=== PATIENT | male | born 1975 | race Caucasian/White ===

== ENCOUNTER 2021-05-31 07:28 | Outpatient (REF) | payer BC, SELFPAY ==
[2021-05-31 11:43] LABS: Cholesterol 187 mg/dL; HDL Cholesterol 69 mg/dL; LDL Cholesterol Calculated 103 mg/dl; Triglycerides 78 mg/dL
== END 2021-05-31 07:29 | disposition home or self-care (01) ==
LOC: HO.HMGCLDS 07:28
PROVIDERS: PCP Internal Medicine; Visit Provider Internal Medicine
DX: E78.00 Pure hypercholesterolemia, unspecified (principal)
CPT/HCPCS: 36415; 80061

== ENCOUNTER 2022-07-11 13:07 | Outpatient (REF) | payer BC, SELFPAY ==
--- NOTE | ~2022-07-11 | CT_ITS ---
EXAMINATION: CT FOOT WITHOUT CONTRAST, RIGHT CLINICAL INFORMATION: Residual foreign body in soft tissues. COMPARISON: None TECHNIQUE: CT scan of the right foot was performed reconstruction imaging performed at the acquisition workstation. This CT examination was performed using dose optimization techniques as appropriate, variously including the following: *Automated exposure control *Adjustment of mA and/or kV according to patient size (this includes techniques or standardized protocols for targeted exams where dose is matched to indication/reason for exam; i.e. extremities or head) *Use of iterative reconstruction technique DLP: 218 mGy-cm FINDINGS: There is no radiopaque foreign body. Subcutaneous soft tissues: There is a localized increased density in the plantar subcutaneous soft tissues overlying the 5th metatarsophalangeal joint with similar but less prominent similar findings overlying the plantar aspect of the 1st and 4th metatarsophalangeal joint. Muscles/tendons: Normal. Bone and joints: Normal. CT/CT foot RT wo IV con IMPRESSION: No radiopaque foreign body. Soft tissue changes over the plantar aspect of the 1st, 4th and 5th metatarsophalangeal joints with the appearance most suggestive of adventitial bursitis.
== END 2022-07-11 13:08 | disposition home or self-care (01) ==
LOC: HO.CT 13:07
PROVIDERS: Visit Provider Surgery
DX: M79.5 Residual foreign body in soft tissue (principal); M79.671 Pain in right foot
CPT/HCPCS: 73700

== ENCOUNTER 2022-10-16 08:35 | Outpatient (REF) | payer BC, SELFPAY ==
[2022-10-16 11:29] LABS: MANUAL DIFF FLAG NO
[2022-10-16 11:39] LABS: Basophils Absolute Auto 0.1 X10*3/uL (0.0-0.2); Basophils Percent Auto 0.8 % (0-2); Eosinophils Absolute Auto 0.2 X10*3/uL (0.0-0.4); Eosinophils Percent Auto 2.9 % (0-4); Hematocrit 42.6 % (42.0-52.0); Imm Gran Abs Auto 0.02 X10*3/uL (0.00-0.03); Imm Gran Pct Auto 0.3 % (0.0-0.4); Lymphocytes Absolute Auto 1.9 X10*3/uL (1.2-4.9); Lymphocytes Percent Auto 25.3 % (20-40); Mean Corpuscular HGB Conc 32.9 g/dl (31.0-36.0); Mean Corpuscular Hemoglobin 28.7 pg (27.0-33.0); Mean Corpuscular Volume 87.3 fL (80.0-98.0); Mean Platelet Volume 10.5 fL (9.4-12.4); Monocytes Absolute Auto 0.8 X10*3/uL (0.1-1.2); Monocytes Percent Auto 10.5 % (2-11); Neutrophils Absolute Auto 4.4 x10*3/uL (2.0-8.3); Neutrophils Percent Auto 60.2 % (45-73); Platelet Count 273 X10*3/uL (160-400); Red Blood Count 4.88 X10*6/uL (4.60-5.80); Red Cell Distribution Width 13.4 % (11.0-16.0); White Blood Count 7.3 X10*3/uL (4.8-10.8)
[2022-10-16 13:24] LABS: Alanine Aminotransferase 15 U/L (0-40); Albumin Level 4.4 g/dL (3.5-5.0); Alkaline Phosphatase 46 U/L (39-117); Anion Gap 11 (12-20); Aspartate Amino Transferase 16 U/L (5-37); Bilirubin Total 0.7 mg/dL (0.0-1.0); Blood Urea Nitrogen 17 mg/dL (9-16); Calcium 9.4 mg/dL (8.4-10.2); Carbon Dioxide 30 mmol/L (22-29); Chloride 104 mmol/L (96-108); Cholesterol 216 mg/dL; Estimated Glomerular Filt Rate > 60; Glucose Fasting 88 mg/dL (60-99); HDL Cholesterol 69 mg/dL; LDL Cholesterol Calculated 134 mg/dl; Potassium 4.3 mmol/L (3.3-5.1); Sodium 141 mmol/L (135-145); Thyroid Stimulating Hormone 1.38 uIU/mL (0.32-4.0); Total Protein 6.6 g/dL (6.5-8.0); Triglycerides 66 mg/dL
== END 2022-10-16 08:36 | disposition home or self-care (01) ==
LOC: HO.HMGCLDS 08:35
PROVIDERS: PCP Internal Medicine; Visit Provider Internal Medicine
DX: Z00.00 Encounter for general adult medical examination without abnormal findings (principal)
CPT/HCPCS: 36415; 80053; 80061; 82306; 84443; 85025

== ENCOUNTER 2024-06-01 08:59 | Outpatient (REF) | payer BC, SELFPAY ==
[2024-06-01 10:07] LABS: MANUAL DIFF FLAG NO
[2024-06-01 10:16] LABS: Basophils Absolute Auto 0.1 X10*3/uL (0.0-0.2); Eosinophils Absolute Auto 0.4 X10*3/uL (0.0-0.4); Eosinophils Percent Auto 5.3 % (0-4); Hematocrit 41.2 % (42.0-52.0); Hemoglobin 14.1 g/dl (14.0-18.0); Imm Gran Abs Auto 0.03 X10*3/uL (0.00-0.03); Imm Gran Pct Auto 0.4 % (0.0-0.4); Lymphocytes Percent Auto 29.2 % (20-40); Mean Corpuscular HGB Conc 34.2 g/dl (31.0-36.0); Mean Corpuscular Hemoglobin 29.7 pg (27.0-33.0); Mean Corpuscular Volume 86.9 fL (80.0-98.0); Mean Platelet Volume 9.7 fL (9.4-12.4); Monocytes Absolute Auto 0.7 X10*3/uL (0.1-1.2); Monocytes Percent Auto 9.5 % (2-11); Neutrophils Absolute Auto 3.7 x10*3/uL (2.0-8.3); Neutrophils Percent Auto 54.6 % (45-73); Platelet Count 271 X10*3/uL (160-400); Red Blood Count 4.74 X10*6/uL (4.60-5.80); Red Cell Distribution Width 13.4 % (11.0-16.0); White Blood Count 6.8 X10*3/uL (4.8-10.8)
[2024-06-01 10:51] LABS: Alanine Aminotransferase 11 U/L (0-40); Albumin Level 4.2 g/dL (3.5-5.0); Alkaline Phosphatase 40 U/L (39-117); Anion Gap 12 (12-20); Aspartate Amino Transferase 14 U/L (5-37); Bilirubin Total 0.8 mg/dL (0.0-1.0); Blood Urea Nitrogen 17 mg/dL (9-16); Calcium 9.2 mg/dL (8.4-10.2); Carbon Dioxide 29 mmol/L (22-29); Chloride 103 mmol/L (96-108); Cholesterol 217 mg/dL (<200); Estimated Glomerular Filt Rate 58; Glucose Fasting 98 mg/dL (60-99); HDL Cholesterol 75 mg/dL (>40); LDL Cholesterol Calculated 129 mg/dL (<100); Magnesium 2.2 mg/dL (1.6-2.6); Potassium 4.3 mmol/L (3.3-5.1); Sodium 140 mmol/L (135-145); Total Protein 6.5 g/dL (6.5-8.0); Triglycerides 68 mg/dL (<150)
== END 2024-06-01 09:00 | disposition home or self-care (01) ==
LOC: HO.HMGCLDS 08:59
PROVIDERS: PCP Internal Medicine; Visit Provider Internal Medicine
DX: Z00.00 Encounter for general adult medical examination without abnormal findings (principal); E78.00 Pure hypercholesterolemia, unspecified; F90.9 Attention-deficit hyperactivity disorder, unspecified type; L84 Corns and callosities; J34.89 Other specified disorders of nose and nasal sinuses
CPT/HCPCS: 36415; 80053; 80061; 83735; 84443; 85025

== ENCOUNTER 2025-01-05 10:27 | Outpatient (AMB) | payer BC, SELFPAY ==
--- NOTE | 2025-01-05 10:33 | A.OFFPC_ITS ---
Vital Signs 01/05/25 10:38 Height 5 ft 9.5 in Weight 176 lb BMI 25.6 BP 118/72 Blood Pressure Location Rt brachial Pulse 65 Pulse Source Pulse Oximeter Temp 97.2 F Pulse Oximetry (%) 98 Intake Visit Reasons: follow up Allergies No Known Allergies Allergy (Verified 01/05/25 11:38) Medication List - Last Reconciled 01/05/25 by Weston Patel MD bupropion HCl SR (Wellbutrin SR) 150 mg PO BID PFSH Medical History (Updated 01/05/25 @ 11:40 by Weston Patel MD) ADHD (attention deficit hyperactivity disorder) Deviated nasal septum Family History Mother Breast cancer Father Skin cancer Social History Alcohol intake: current Alcohol intake frequency: holidays/special occasions only Patient Tobacco Use Status: Never used Tobacco Physical exam (Primary Care) Vital Signs: Last Vital Signs Temp 97.2 F 01/05/25 10:38 Pulse 65 01/05/25 10:38 BP 118/72 01/05/25 10:38 Pulse Ox 98 01/05/25 10:38 Care Plan Goal for BP management: BP is in range. BMI result Body Mass Index 25.6 Tobacco/Smoking Status: Tobacco use Status Patient Tobacco Use Status Never used Tobacco 01/05/25 10:34 Const General: cooperative and healthy appearing Nutritional Appearance: well nourished Orientation/consciousness: patient oriented x3 Limitations: no limitations HENMT Head: Yes normal to inspection Eyes General: appearance normal, both eyes and all related structures Neck Neck: Yes normal visual inspection Chest Chest palpation & inspection: normal palpation of entire chest wall Resp Effort & Inspection: normal respiratory effort Neuro General: patient oriented x3 Coding Level of Care Code New Pt Level 4 (79591) Complex EM visit Add On G2211 Diagnoses ADHD (attention deficit hyperactivity disorder) F90.9 Deviated nasal septum J34.2 Foreign body (FB) in soft tissue M79.5 Assessment & Plan Assessment & Plan (1) ADHD (attention deficit hyperactivity disorder): Code(s): F90.9 - Attention-deficit hyperactivity disorder, unspecified type Category: Medical Plan: Reviewed the record, Wellbutrin started. Recheck in 4 weeks (2) Deviated nasal septum: Code(s): J34.2 - Deviated nasal septum Category: Medical Plan: Awaiting CT orders from ENT (3) Foreign body (FB) in soft tissue: Code(s): M79.5 - Residual foreign body in soft tissue Category: Medical Plan: As above Plan History of Present Illness The patient is a 49-year-old male presenting with routine physical evaluation and follow-up on referrals for ear, nose, and throat evaluation, and evaluation for attention deficit disorder. The patient reported experiencing difficulty breathing through the left nostril, particularly exacerbated at night when sleeping on his side. This was initially evaluated by Dr. Samano, who referred the patient to an ENT specialist. The ENT specialist conducted a scope examination in November, noting a deviated nasal septum towards the right, which is counterintuitive to the reported symptoms in the left nostril. A CT scan was recommended for further assessment; however, it is pending completion. Concurrent with these respiratory symptoms, the patient is also undergoing evaluation for attention deficit disorder, as referred by Dr. Samano to Dr. Gilman. Previous assessment indicated borderline symptoms not fully meeting the criteria for a clinical diagnosis of ADD. Executive function appeared average, with above-average abilities in other cognitive domains, creating a perceived deficit. The recommendations included medication consideration for symptomatic relief. Regarding personal constraints, his estranged expressed concern about ADD symptoms affecting their relationship quality. Furthermore, the patient reports significant challenges in task management, completion of administrative responsibilities, remembering appointments, and meeting academic obligations efficiently. Additionally, the patient has self-managed a plantar wart under the callus of his foot, which causes discomfort when walking. 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 - Currently from his , with no children. - Engages in daily exercise, including gym activities and maintaining his five- acre property. - Reports no tobacco or alcohol use. Review of Systems - Ear, Nose, Throat: Reports difficulty breathing through the left nostril at night. - Neurological: Reports difficulty with time management, task completion, and remembering appointments. Physical Exam General: Appearance normal, both eyes and all related structures Nutritional Appearance: Well nourished Orientation/consciousness: Patient oriented x3 Limitations: No limitations Head: Normal to inspection Neck: Normal visual inspection Chest: Normal palpation of entire chest wall Respiratory: Difficulty breathing through the left nostril, suspected deviated septum Neurology: Patient oriented x3 Results Plan - Evaluate and follow up on the scheduled CT scan for further investigation of nasal obstruction. - Initiate treatment with bupropion for attention deficit symptoms and low-level depression. - Encourage maintaining a daily log to assess medication effectiveness and anna tor potential side effects. - Follow up with potential recommendations for psychotherapy to support cognitive behavioral interventions. - Continue self-treatment for plantar wart; consider consulting a special investigator if progress remains unsatisfactory. - Schedule a follow-up appointment in four weeks to evaluate medication effectiveness and reassess ENT management. Patient was informed and verbally consented to the use of an ambient scribe for clinic note documentation during this visit. Discussion Notes I discussed with the patient the recommendation to begin bupropion, which can aid with attention and depressive symptoms. Bupropion, a norepinephrine-dopamine reuptake inhibitor, often helps in improving concentration and alleviating gloom associated with depressive symptoms. I informed the patient that any medication could initially cause minor side effects, such as feelings of strangeness, which typically resolve within a couple of days. It is essential to maintain compliance to realize the medication's benefits while observing and logging any side effects, particularly concerning potential weight changes. I educated the patient on the importance of gradual discontinuation if they decide to stop the medication. Additionally, I highlighted that psychotherapy, particularly cognitive behavioral therapy, can be beneficial. Options will be explored for therapist recommendations. Finally, I advised the patient on using practical strategies, such as timers and lists, to manage tasks effectively, recognizing that, given his academic achievements, these can further enhance productivity. Patient Instructions - Start taking bupropion as prescribed, twice daily initially. - Keep a daily log of symptoms to monitor medication effectiveness. - Follow up on CT scan for nasal evaluation if not scheduled; contact ENT office to expedite if necessary. - Continue self-care for plantar wart; consider podiatry consult if needed. - Return for follow-up in four weeks for reassessment and review of progress. - Consider engaging in cognitive behavioral therapy for additional support. - Maintain current level of physical activity and routine household management. Medications: New bupropion HCl SR (Wellbutrin SR) 150 mg PO BID 60 tabs 1RF
[2025-01-05 10:38] VITALS: BP 118/72; PULSE 65; TEMP 36.2; O2SAT 98; BMI 25.6
--- OUTSIDE RECORDS SUMMARY | 2025-01-05 12:22 | XMS_ITS ---
Author Organization Abdifatah Samano DO, [facility] Address [address], [place] [id number] Care Team Providers Care Electrical Engineering Designer Name Role Phone Abdifatah Samano Primary Care Provider [phone] REASON FOR VISIT 3 month f/u Encounters Encounter Location Date Provider Diagnosis Abdifatah Samano DO, [address] [phone] 09/01/2024 Abdifatah Samano PLAN OF TREATMENT No Information
--- OUTSIDE RECORDS SUMMARY | 2025-01-05 12:22 | XMS_ITS | Data Portability ---
Author Organization [place] - [facility], Allergy Address [address] [place] [phone] Care Team Providers Care Brownfield Redevelopment Specialist Name Role Phone HERSONDOTTIE JONES Referring Provider [phone] Assessment No assessment recorded. Plan of Treatment Reminders Order Date Submit Date Provider Last Modified By Organization Details Last Modified Time Details Appointments None recorded. Lab None recorded. Referral plastic surgeon referral 2024 025 [facility] Lew Carter MD [facility], [address] [place] [address], [place], [address], 5 16:25:21 Procedures None recorded. Surgeries None recorded. Imaging CT, maxillofa cial, w/ contrast 2024 025 [facility], [address] [place], [address], 5 15:39:11 Medication Orders Flonase Allergy Relief 50 mcg/actua tion nasal spray,sunday pension 2024 025 [id number], [address] [place], [address], 5 15:36:50 Patient TargetsNo targets recorded. Patient InstructionsNo instructions recorded. Reason for Referral Plastic Surgeon Referral for Disorder of the nose Referring Physician: Dottie Avila, Otolaryngology, Encounter Date: 11/23/2024 Problems Name Problem SNOMED Code Status Onset Date Resolution Date Notes Provider Name and Address Organization Details Recorded Time Disorder of the nose 10864841 Active 025 DOTTIE Carbajal MD [address] [address], [place], [phone], [facility] - [facility] 15:30:06 Deviated nasal septum 532636106 Active 025 DOTTIE Carbajal MD [address] [address], [place], [phone], [facility] - [facility] 15:30:10 Nasal congestion 78635434 Active 025 DOTTIE Carbajal MD [address] [address], [place], [phone], [facility] - [facility] 15:30:13 Problem Notes None recorded. Procedures Surgical History Date Name Laterality Status Provider Name and Address Organization Details Recorded Time 11/23/2024 NasalEndos copy_DP completed DOTTIE AVILA MD [address] [place] [address], [phone], [facility] 11/23/2024 15:30:28 Imaging Results None recorded. Procedure Notes None recorded. Medical Equipment None Reported. Medications Name Sig Start Date Stop Date Status Note LastModified by Organization Details LastModified Time fluticasone propionate 50 mcg/actuatio n nasal spray,suspen haseeb SPRAY 1 SPRAY BY INTRANASAL ROUTE EVERY DAYNC active Not Available Not Available No t Available Vitals Date Recorded Body height Body mass index (BMI) Body weight Provider Name and Address Organization Details Last Updated DateTime 11/23/2024 177.8 cm 38.7 kg/m2 682160.94 g Mihir Frey [place] - [facility] 11/23/2024 14:57:16 Social History None recorded. Functional Status None recorded. Mental Status None recorded. Family History Nothing Reported. Medical History No medical history recorded. Past Encounters Encounter ID Performer Location Encounter Start Date Encounter Closed Date Diagnosis/Indication Diagnosis SNOMED-CT Code Diagnosis ICD10 Code Diagnosis Note [id number] DOTTIE AVILA MD [facility] on [address] [place] [phone] 11/23/2024 14:38:20 11/23/2024 15:37:57 Disorder of the nose 06524481 J34.9 He has nasal obstructio n worse on the left that doesn't seem to be due to septal deviation. I suggested breathe right strips and I will refer to plastic surgery for consultati on for functional rhinoplast y. I will order a CT max/face (with contrast since he feels some asymmetry and change in his left malar area to make sure no underlying lesions) to evaluate the structure of his nose and sinuses. I will refer to to plastic surgery for consultati on. Nasal endo negative for polyps and purulence. Deviated nasal septum 12 6960695 J34.2 Septum deviates to the right, but airflow is worse on the right Nasal congestion 0236406 0 R09.81 see above Health Concerns Section Related Observation LastModified by Organization Detai ls LastModified Time None Recorded Concern Status LastModified by Organization Details LastModified Time None Recorded Advance Directives Directive None Recorded Payers Encounter Date Sequence Insurance Name Policy Number Policy Cobb Covered Member ID Cobb Member ID Guarantor Name 11/23/[address] [facility] [id number] Heebrt Heath [id number] Hebert Heath Notes Date Note Type Note Provider Name and Address Organization Details Recorded Time 11/23/2024 text/html He has noted winnie t when he palpates his left maxillary area near the nasal sidewall there is a bump he doesn't have on the right side. He notes congestion on the inside of his nose as well. He reports when he is exercising he hears a flapping sound when he breathes through his nose. No hx of nasal surgery or trauma. Denies seasonal congestion or rhinorrhea related to allergies. He does not smoke. No hx of sinus infections. This has been worse over the last two years or so. DOTTIE AVILA MD [address] [place] [address], [place], [address], [place] - [facility] 11/23/2024 15:36:52
--- OUTSIDE RECORDS SUMMARY | 2025-01-05 12:23 | XMS_ITS ---
Author Organization Abdifatah Samano DO FACP Address [address] [place] [phone] Care Team Providers Care Irrigation Engineer Name Role Phone Abdifatah Samano Primary Care Provider ALLERGIES Allergen (clinical drug ingredient) Drug/Non Drug Allergy documented on EMR Reaction Allergy Type Onset Date Status amoxicillin Amoxicillin urticaria Drug Allergy Elizabeth ctive RESULTS Component Value Reference Range Notes Magnesium Reviewed date:06/01/2024 11:14:46 AM Interpretation:Normal Performing Lab:[facility], [address] [place] [address] Notes/Report: Magnesium 2.2 1.6-2.6 mg/dL REASON FOR REFERRAL Reason CSE Lesion on dorsum of left hand Lesion of left maxillary region Diagnosis 1 Encounter for genera l adult medical examination without abnormal findings (Z00.00) Referral Organization Abdifatah Ricketts FACP Referring Provider First Name Abdifatah Referring Provider Last Name Jazmyne Referring Provider Speciality Internal M edicine Referred Provider Rex Whiting Referred Provider Specialty Dermatology General Notes Priscilla Harrington 4 03:28:49 PM EDT > Referral faxed prior to scheduling, Priscilla Harrington 05/27/2024 10:49:51 AM EDT > Patient aware that the Dermatology office will contact patient. Referral Priority Routine Reason Adult ADHD assessmen t Diagnosis 1 Adult ADHD (F90.9) Referral Organization Abdifatah Ricketts FACP Referring Provider First Name Abdifatah Referring Provider Last Name Jazmyne Referring Provider Speciality Internal M edicine Referred Provider Farhat Teran Referred Provider Specialty Licensed Psy chologist General Notes Priscilla Harrington 4 03:28:07 PM EDT > Referral faxed prior to scheduling Referral Priority Routine Reason Callus of foot Diagnosis 1 Callus of foot (L84) Referral Organization Abdifatah Ricketts FACP Referring Provider First Name Abdifatah Referring Provider Last Name Jazmyne Referring Provider Speciality Internal edicine Referred Provider Javon Hernandez Referred Provider Specialty Podiatry General Notes Priscilla Harrington 4 03:27:03 PM EDT > Referral faxed prior to scheduling and patient is aware that he has to call and make appointment., Brock Harringtonna 07/07/2024 01:51:02 PM EDT > Called Dr. Dan office patient has not called to make appointment yet and Dr. Hernandez is retiring in August, but when patient calls they will be put with another physician. 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) Referral Organization Abdifatah Ricketts FACP Referring Provider First Name Abdifatah Referring Provider Last Name Jazmyne Referring Provider [facility] Internal edicine Referred Provider Abdifatah Oliva Referred Provider Specialty Otolaryngolo gy General Notes Priscilla Harrington 4 03:29:56 PM EDT > Referral faxed prior to scheduling Referral Priority Routine Referral Appointment Date 11/23/2024 REASON FOR VISIT physical, annual visit MEDICATIONS Medication SIG (Take, Route, Frequency, Duration) Notes Start Date End Date Status Ibuprofen 800 MG 1 tablet with food o r milk as needed Orally Three times a day 10/27/2019 Active Magnesium Glycinate 100 MG 2 capsules Or ally Twice a day Active [place] 3 1000 MG 1 capsule Orally Onc e a day Active SOCIAL HISTORY Tobacco Use: Social History Observation Description Date Details (start date - stop date) Never Smoker NA - NA Sex Assigned At : Social History Observation Description Sex Assigned At Unknown Tobacco Use/Smoking Question Answer Notes Patient is a nonsmoker Additional Findings: Tobacco Non-User Cu rrent non-smoker, currently using no form of tobacco Alcohol Screen Question Answer Notes Did you have a drink containing alcohol in the p ast year? No Points 0 Interpretation Negative PROBLEMS Problem Type ICD Code Onset Dates Problem Status W/U Status Risk SNOMED Code Notes Problem Adult ADHD (F90.9) Active confirmed 977211424 VITAL SIGNS BMI 25.32 kg/m2 05/26/2024 Blood pressure systolic 102 mm Hg 05/26/20 24 Blood pressure diastolic 64 mm Hg 024 Height 69.50 in 05/26/2024 Weight 174 lbs 05/26/2024 Encounters Encounter Location Date Provider Diagnosis Abdifatah Camacho Jazmyne DO, [address] [phone] 05/26/2024 Abdifatah Samano Encounter for genera l adult medical examination without abnormal findings Z00.00 ; Hypercholesterolemia E78.00 ; Adult ADHD F90.9 ; Callus of foot L84 and 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 ASSESSMENTS Encounter Date Diagnosis Assessment Notes Treatment Notes Treatment Clinical Notes 05/26/2024 Encounter for genera l adult medical examination without abnormal findings (ICD-10 - Z00.00) 05/26/2024 Hypercholesterolemia (ICD-10 - E78.00) 05/26/2024 Adult ADHD (ICD-10 - F90.9) 05/26/2024 Callus of foot (ICD- 10 - L84) 05/26/2024 Refractory obstructi on of nasal airway (ICD-10 - J34.89) PLAN OF TREATMENT Medication Medication Name Sig Start Date Stop Date Notes Ibuprofen 800 MG 1 tablet with food o r milk as needed Orally Three times a day 10/27/2019 Magnesium Glycinate 100 MG 2 capsules Orally Twice a day [place] 3 1000 MG 1 capsule Orally Once a day Pending Test Test Name Order Date CBC w DIFF 05/26/2024 LIPOPROTEIN FRACTIONATION (LIPID PANEL) 05/26/2024 PROFILE, FASTING 05/26/2024 TSH (THYROID STIMULATING HORMONE) 2023 Referrals Referral Date Details CSE Lesion on dorsum of left hand Lesion of left maxillary region, Rex Whiting Adult ADHD assessmen Farhat hudson Callus of footKeith 11/23/2024 11/23/2024, Nasal ai rway obstruction, Abdifatah Oliva Next Appt Details Follow Up: 3 Months, Reason: follow up visit,review lab work Progress Notes * Examination Category Sub-Category Detail Notes General Examination GENERAL APPEARANCE: well dev eloped, well nourished, in no acute distress HEAD: normocephalic, atrau matic EYES: pupils equal, round, reactive to light and accommodation, sclera non-icteric NOSE: nares patent NECK/THYROID: neck supple, full ra nge of motion, no cervical lymphadenopathy, thyroid normal, no carotid bruit HEART: regular rate and rhy thm, S1, S2 normal, no murmurs CHEST: normal LUNGS: clear to auscultatio n bilaterally ABDOMEN: soft, nontender, non distended, bowel sounds present, normal NEUROLOGIC: nonfocal, motor stre ngth normal upper and lower extremities, sensory exam intact SKIN: warm and dry, lesion on dorsum of left hand EXTREMITIES: no edema PERIPHERAL PULSES: 2+ dorsalis pedis, 2 + posterior tibial PSYCH: alert, oriented, cog nitive function intact, cooperative with exam, good eye contact, judgement and insight good PODIATRIC: calluses present radha ntar surface, laterally History and Physical Notes * HPI (History of Present Illness) Category Sub-Category Detail Notes Depression Screening PHQ-9 Little inte rest or pleasure in doing things: Not at all Feeling down, depressed, or hopeless: No t at all Trouble falling or staying asleep, or sl eeping too much: Not at all Feeling tired or having little energy: N ot at all Poor appetite or overeating: Not at all Feeling bad about yourself o r that you are a failure, or have let yourself or your family down: Not at all Trouble concentrating on thi ngs, such as reading the newspaper or watching television: Not at all Moving or speaking so slowly that other people could have noticed; or the opposite, being so fidgety or restless that you have been moving around a lot more than usual: Not at all Thoughts that you would be b bessie off or of hurting yourself in some way: Not at all Total Score: 0 Interpretation and Intervention Depression Katelynn jack Findings: Negative Follow-Up for Depression: : Review of PH Q-9 found negative result; no follow-up needed Fall Risk Fall History Have you had two or more fal ls in the past year?: No Have you had any falls with injury in th e past year?: No Fall Risk Assessment:: No falls in the p ast year Communication Needs PCMH Communication Needs - PCM He aring Impairment?: Yes mild Vision Impairment?: No Cognitive Impairment?: No SDOH Questions SDOH Questions In the past year have you been worried about losing your housing?: No In the past year have you or any family members you live with been unable to get any of the following when it was really needed? Check all that apply:: None Consultation Request Notes Referral Date Referring Provider Referred Provider Not es 05/26/2024 Abdifatah Samano Richard CSE Lesion on dorsum of left hand Lesion of left maxillary region 05/26/2024 Abdifatah Samano Mitchell Adult ADHD assessment 05/26/2024 Abdifatah Samano Walter Callus of fo ot 05/26/2024 Abdifatah Samano Robert Nasal airway obstruction
--- OUTSIDE RECORDS SUMMARY | 2025-01-05 12:23 | XMS_ITS | Patient Health Record ---
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 Agent Name Role Phone Abdifatah Samano Primary Care Provider ALLERGIES Allergen (clinical drug ingredient) Drug/Non Drug Allergy documented on EMR Reaction Allergy Type Onset Date Status amoxicillin Amoxicillin urticaria Drug Allergy Deposit ctive RESULTS Component Value Reference Range Notes Magnesium Reviewed date:06/01/2024 11:14:46 AM Interpretation:Normal Performing Lab:[facility], [address] [place] [phone] Notes/Report: Magnesium 2.2 1.6-2.6 mg/dL Complete Blood Count Auto Di ff Reviewed date:06/01/2024 10:42:00 AM Interpretation:Normal Performing Lab:[facility], [address] [place] [phone] Notes/Report: White Blood Count 6.8 4.8-10.8 X10*3/uL Red Blood Count 4.74 4.60-5.80 X10*6/uL Hemoglobin 14.1 14.0-18.0 g/dl Hematocrit 41.2 42.0-52.0 % Mean Corpuscular Volume 86.9 80.0-98.0 fL Mean Corpuscular Hemoglobin 29.7 27.0-33.0 pg Mean Corpuscular HGB Conc 34.2 31.0-36.0 g/dl Red Cell Distribution Width 13.4 11.0-16.0 % Platelet Count 271 160-400 X10*3/uL Mean Platelet Volume 9.7 9.4-12.4 fL Neutrophils Percent Auto 54.6 45-73 % Imm Gran Pct Auto 0.4 0.0-0.4 % Lymphocytes Percent Auto 29.2 20-40 % Monocytes Percent Auto 9.5 2-11 % Eosinophils Percent Auto 5.3 0-4 % Basophils Percent Auto 1.0 0-2 % NRBC Pct Auto 0.0 0.0-0.2 /100WBC Neutrophils Absolute Auto 3.7 2.0-8.3 x10*3/u L Imm Gran Abs Auto 0.03 0.00-0.03 X10*3/uL Lymphocytes Absolute Auto 2.0 1.2-4.9 X10*3/u L Monocytes Absolute Auto 0.7 0.1-1.2 X10*3/uL Eosinophils Absolute Auto 0.4 0.0-0.4 X10*3/u L Basophils Absolute Auto 0.1 0.0-0.2 X10*3/uL NRBC Abs Auto 0.000 0.0-0.012 X10*3/uL Comprehensive [place]. Panel Fa st Reviewed date:06/01/2024 11:14:30 AM Interpretation:Normal Performing Lab:[facility], [address] [place] [phone] Notes/Report: Sodium 140 135-145 mmol/L Potassium 4.3 3.3-5.1 mmol/L Chloride 103 96-108 mmol/L Carbon Dioxide 29 22-29 mmol/L Anion Gap 12 12-20 Blood Urea Nitrogen 17 9-16 mg/dL Creatinine 1.32 0.5-1.4 mg/dL Estimated Glomerular Filt Rate 58 NOTE: For -[place] individuals, multiply the result by 1.210. Chronic Kidney Disease: Estimated GFR < 60 mL/min/1.73m2 Severe Kidney Disease: Estimated GFR < 15 mL/min/1.73m2 Glucose Fasting 98 60-99 mg/dL Calcium 9.2 8.4-10.2 mg/dL Bilirubin Total 0.8 0.0-1.0 mg/dL Aspartate Amino Transferase 14 5-37 U/L Alanine Aminotransferase 11 0-40 U/L Total Protein 6.5 6.5-8.0 g/dL Albumin Level 4.2 3.5-5.0 g/dL Alkaline Phosphatase 40 39-117 U/L Lipid Panel Reviewed date:06/01/2024 11:14:30 AM Interpretation:Normal Performing Lab:[facility], [address] [place] [phone] Notes/Report: Triglycerides 68 <150 mg/dL Desirable Triglyceride: less than 150 mg/dL Borderline High Triglyceride 150-199 mg/dL High Triglyceride: 200-499 mg/dL Very High Triglyceride: greater than or equal to 5OO mg/dL Cholesterol 217 <200 mg/dL Desirable Cholesterol: less than 200 mg/dL Borderline High Cholesterol: 200-239 mg/dL High Cholesterol: greater than 239 mg/dL LDL Cholesterol Calculated 129 <100 mg/dL Desirable LDL: less than 100 mg/dL Near Optimal/Above Optimal LDL: 110-129 mg/dL Borderline High LDL: 130-159 mg/dL High LDL: 160-189 mg/dL Very High LDL: greater than or equal to 190 mg/dL HDL Cholesterol 75 >40 mg/dL Desirable HDL: greater than 40 mg/dL Note: This HDL assay may give artificially low results in patients with liver disease. Thyroid Stimulating Hormone Reviewed date:06/01/2024 11:14:30 AM Interpretation:Normal Performing Lab:[facility], [address] [place] [phone] Notes/Report: Thyroid Stimulating Hormone 0.90 0.32-4.0 uIU/ mL TSH 3rd Generation ([facility]) REASON FOR REFERRAL Reason CSE Lesion on dorsum of left hand Lesion of left maxillary region Diagnosis 1 Encounter for genera l adult medical examination without abnormal findings (Z00.00) Referral Organization Abdifatah Ricketts FACP Referring Provider First Name Abdifatah Referring Provider Last Name Jazmyne Referring Provider Speciality Internal edicine Referred Provider Rex Whiting Referred Provider [...] he has to call and make appointment., JuanyBrockPriscilla 07/07/2024 01:51:02 PM EDT > Called Dr. [...] Referring Provider Last Name Jazmyne [facility] Referred Provider Abdifatah Oliva Referred Provider Specialty Otolaryngolo gy General Notes Priscilla Harrington 4 03:29:56 PM EDT > Referral faxed prior to scheduling Referral Priority Routine Referral Appointment Date 11/23/2024 MEDICATIONS Medication SIG (Take, Route, Frequency, Duration) Notes Start Date End Date Status Ibuprofen 800 MG 1 tablet with food o r milk as needed Orally Three times a day 10/27/2019 Active Magnesium Glycinate 100 MG 2 capsules Or ally Twice a day Active [place] 3 1000 MG 1 capsule Orally Onc e a day Active IMMUNIZATIONS Vaccine Route Administration Date Status Comme nts Influenza IM Intramuscular 01/07/2016 Administered Influenza Quad IM Intramuscular 09/20/2020 Administered Influenza Quad IM Intramuscular 08/31/2021 Administered Influenza Quad Unknown 11/15/2018 Administered COVID-19 Pfizer BioNTech Unknown 04/12/2021 Administere d COVID-19 Moderna Vaccine Unknown 11/13/2021 Administere d TDaP Unknown 07/27/2021 Administered COVID-19 Pfizer BioNTech Unknown 03/18/2021 Administere d COVID-19 Pfizer Bivalent Unknown 07/31/2022 Administere d Influenza Quad Unknown 07/31/2022 Administered SOCIAL HISTORY Tobacco Use: Social History Observation [...] W/U Status Risk SNOMED Code Notes Problem Pain in right leg (M79.604) Active confirmed 64181957 Problem Allergic reaction, subsequent encounter (T78.40XD) Active confirmed 867532445 Problem Pain of left leg (M79.605) Active confirmed 504040420 Problem Psoriasis (L40.9) Active confirmed 9014 002 Problem Hypercholesterolemia (E78.00) Active confirmed 68532497 Problem Acute non-recurrent frontal sinusitis (J01.10) Active confirmed 78430586 Problem Left hip pain (M25.552) Active confirmed 90505599 Problem Adult ADHD (F90.9) Active confirmed 444 431554 VITAL SIGNS Blood pressure diastolic 64 mm Hg 05/26/2024 Height 69.50 in 05/26/2024 Blood pressure systolic 102 mm Hg 05/26/2024 Weight 174 lbs 05/26/2024 BMI 25.32 kg/m2 05/26/2024 Encounters Encounter Location Date Provider Diagnosis Abdifatah Samano DO, [facility] [address] [place], [place] [phone] 05/26/2024 Abdifatah Samano Encounter for genera l adult medical examination without abnormal findings Z00.00 ; Hypercholesterolemia E78.00 ; Adult ADHD F90.9 ; Callus of foot L84 and 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 Abdifatah Samano DO, [facility] [address] [place], [place] [phone] 09/01/2024 Abdifatah Samano DO, [facility] [address], [place] [phone] 01/05/2025 Abdifatah Samano ASSESSMENTS Encounter Date Diagnosis Assessment Notes Treatment Notes Treatment Clinical Notes 05/26/2024 Encounter for genera l adult medical examination without abnormal findings (ICD-10 - Z00.00) 05/26/2024 Hypercholesterolemia (ICD-10 - E78.00) 05/26/2024 Adult ADHD (ICD-10 - F90.9) 05/26/2024 Callus of foot (ICD- 10 - L84) 05/26/2024 Refractory obstructi on of nasal airway (ICD-10 - J34.89) PLAN OF TREATMENT Pending Test Test Name Order Date CBC w DIFF 05/26/2024 LIPOPROTEIN FRACTIONATION (LIPID PANEL) 05/26/2024 PROFILE, FASTING 05/26/2024 TSH (THYROID STIMULATING HORMONE) 2023 Insurance Providers Payer Name Payer Address Payer Phone Subscriber Number Group Number Insured Name Patient Relationship to Insured Coverage Start Date Coverage End Date [facility] [address] [place], [place] [id number] Hebert Heath Self - patient is the insured MEDICAL (GENERAL) HISTORY Medical History History ICD Code psoriasis allergies ulcerative proctitis prostatitis Acute non-recurrent frontal sinusitis J0 1.10 Hypercholesterolemia E78.00 Surgical History Surgery Date(Month/Year) wisdom teeth extraction
--- OUTSIDE RECORDS SUMMARY | 2025-01-05 12:23 | XMS_ITS ---
Author Organization Abdifatah Samano DO, [facility] Address [address] [place], [place] [phone] Care Team Providers Care Air Route Traffic Controller Name Role Phone Abdifatah Samano Primary Care Provider Encounters Encounter Location Date Provider Diagnosis Abdifatah Samano DO, FACP [address] [place] [phone] 01/05/2025 Abdifatah Samano PLAN OF TREATMENT No Information
== END 2025-01-05 11:25 | disposition home or self-care (01) ==
LOC: HO.HMCSH 10:27
PROVIDERS: PCP Internal Medicine; Visit Provider Internal Medicine
DX: F90.9 Attention-deficit hyperactivity disorder, unspecified type (principal); J34.2 Deviated nasal septum; M79.5 Residual foreign body in soft tissue

== ENCOUNTER → 2025-01-05 10:27 | Outpatient (BNVA) | payer BC, SELFPAY | PROVIDERS: PCP Internal Medicine; Visit Provider Internal Medicine ==

== ENCOUNTER 2025-01-19 10:47 | Outpatient (AMB) | payer BC, SELFPAY ==
[2025-01-19 10:54] VITALS: BP 118/60; PULSE 60; RESP 14; O2SAT 99; BMI 25.3
--- NOTE | 2025-01-19 10:54 | MHC.PC.OV ---
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: No Accompanied by: Self / Same As Patient Allergies No Known Allergies Allergy (Verified 01/19/25 10:58) Tobacco use date assessed: 01/19/25 Dental Screening Dental Screen Date: 01/19/25 Did you have a dental visit in the last 12 months?: No Did you have a dental problem in the last 6 months where you did not have access to dental care?: No PFSH Medical History ADHD (attention deficit hyperactivity disorder) Deviated nasal septum Family History Mother Breast cancer Father Skin cancer Social History Housing: House Alcohol intake: current Alcohol intake frequency: holidays/special occasions only Patient Tobacco Use Status: Never used Tobacco service: No Current occupational status: employed Cognitive needs: No Hearing needs: No Vision needs: No Questionnaire PHQ-9 Over the last 2 weeks, how often have you been bothered by any of the following problems? 1. Little interest or pleasure in doing things: not at all 2. Feeling down, depressed, or hopeless: not at all 3. Trouble falling or staying asleep, or sleeping too much: not at all 4. Feeling tired or having little energy: not at all 5. Poor appetite or overeating: not at all 6. Feeling bad about yourself - or that you are a failure or have let yourself or your family down: not at all 7. Trouble concentrating on things, such as reading the newspaper or watching television: not at all 8. Moving or speaking so slowly that other people could have noticed. Or the opposite - being so fidgety or restless that you have been moving around a lot more than usual: not at all 9. Thoughts that you would be better off or of hurting yourself in some way: not at all Total score: 0 Source: Developed by Drs. Lucy Mills Kurt Kroenke and colleagues, with an educational lucrecia from [employer]. Thrive Questionnaire Date Thrive assessed: 01/19/25 I am a: Patient What is your living situation today?: I have a steady place to live Within the past 12 months, did the food you bought not last and you didn't have the money to get more?: Never true Within the past 12 months, did you worry whether your food would run out before you got money to buy more?: Never true Do you have trouble paying for medicines?: No Do you have trouble getting transportation to medical appointments?: No Do you have trouble paying your heating and electricity bill?: No Do you have trouble taking care of your child, family member or friend?: No Do you have trouble with day-to-day activities such as bathing, preparing meals, shopping, managing finances, etc.?: No Are you currently unemployed and looking for a job?: No Are you interested in more education?: No THRIVE Score: 0 AUDIT C Alcohol Use Questionnaire (AUDIT-C) 1. How often do you have a drink containing alcohol?: Monthly or less 2. How many drinks containing alcohol do you have on a typical day when you are drinking?: 1 or 2 3. How often do you have six or more drinks on one occasion?: Never Total Score: 1 KAYLYN-7 AMB Questionnaire KAYLYN-7 Date KAYLYN - 7 assessed: 01/19/25 Feeling nervous, anxious, or on edge: 0 = Not at all Not being able to stop or control worryin = Not at all Worrying too much about different things: 0 = Not at all Trouble relaxin = Not at all Being so restless that it is hard to sit still: 0 = Not at all Becoming easily annoyed or irritable: 0 = Not at all Feeling afraid as if something awful might happen: 0 = Not at all Total KAYLYN-7 score (0-4 normal; 5-9 mild; 10-14 moderate; 15-21 severe): 0 Source: Developed by Drs. Abdifatah Hansen, Walter Rowe and colleagues, with an educational lucrecia from [employer]. Physical exam (Primary Care) Vital Signs: Last Vital Signs Pulse 60 01/19/25 10:54 Resp 14 01/19/25 10:54 BP 118/60 01/19/25 10:54 Pulse Ox 99 01/19/25 10:54 Oxygen Delivery Method Room Air 01/19/25 10:54 BMI result Body Mass Index 25.3 Tobacco/Smoking Status: Tobacco use Status Tobacco use date assessed 01/19/25 01/19/25 11:00 Patient Tobacco Use Status Never used Tobacco 01/19/25 11:00 PHQ-9: PHQ-9 Score PHQ-9: Total score 0 01/19/25 11:00 Thrive Assessment: Date of Thrive Assessment Date Thrive assessed 01/19/25 01/19/25 11:00 Coding Level of Care Code Est Pt Level 3 (95558) Complex EM visit Add On G2211 Diagnoses Skin rash R21 Assessment & Plan Assessment & Plan (1) Skin rash: Code(s): R21 - Rash and other nonspecific skin eruption Plan: History of Present Illness The patient is a 49-year-old male presenting with a rash associated with Bupropion use. He took Bupropion for 11 days before noticing a rash primarily on the hands, later spreading across the body. The itching intensified particularly in the mornings and at night. Additional medication-related side effects such as insomnia were acknowledged, yet attributable factors remain uncertain given his existing history of insomnia. Mild cold-like symptoms had been experienced but have since abated. Past sensitivities include essential oil allergies causing itching on the neck and a shampoo reaction noted on the face. The patient brought essential oils influencing prior mild allergic reactions and a shampoo product applied to the face into context. Treatment to date includes medication pickup of Hydroxyzine for symptom relief, though not yet utilized, and consideration of Prednisone for potential exacerbation management. The decision was made to resume Bupropion unless symptoms persisted, with follow-up scheduled to further evaluate treatment efficacy and symptom tracking progress during continued use. Social History - Denies current smoking or substance use habits. - Patient history of allergic response to essential oils impacting the neck. - Reports using personal care products that previously incited delayed dermatological reactions. Review of Systems Physical Exam General: Cooperative and healthy appearing Nutritional Appearance: Well nourished Orientation/consciousness: Patient oriented x3 Limitations: No limitations Head: Normal to inspection General: Appearance normal, both eyes and all related structures Neck: Normal visual inspection Chest: Normal palpation of entire chest wall Respiratory: Normal respiratory effort Neurology: Patient oriented x3 Skin: Purpuric lesions in the palms, upper thigh Results Plan The patient presents an allergenic-type rash potentially triggered by Bupropion but with observations suggesting a non-medication origin. Recommendations include continuing Bupropion and monitoring the rash's progress while employing Hydroxyzine for immediate itch relief. Prednisone is to be retained for use solely if symptoms worsen significantly. Upcoming appointments are arranged to monitor symptom changes, assess the medication's broader impact, and ensure that any potential cross-reactions are addressed promptly. Continual communication via patient portals is emphasized for symptom reporting or emergent concerns between consultations. Patient was informed and verbally consented to the use of an ambient scribe for clinic note documentation during this visit. Discussion Notes During the visit, we discussed the potential allergic nature of the rash, ensuring that the patient is aware that Bupropion classically does not induce such reactions, advising continued use unless reactions intensify. Treatment with Hydroxyzine was suggested to manage itch symptoms effectively. The patient is informed of the option to utilize Prednisone if rashes progress beyond current limits. Emphasis was put on using the patient portal for any escalating symptoms, with next steps being outlined through direct follow-up evaluation. Anticipatory guidance included maintaining a symptom record and being watchful for any increasing dermatological responses to either the medication or other environmental factors. Patient Instructions - Continue Bupropion as directed unless rash worsens. - Begin taking Hydroxyzine to manage itching. - Retain and consider taking Prednisone only if symptoms significantly escalate. - Observe and record any rash changes and medication side effects. - Use the patient portal to report any additional symptoms or concerns. - Attend the scheduled follow-up visit for reevaluation. - Ensure CAT scan appointment is scheduled as awaiting hospital coordination. Medications: Refilled bupropion HCl SR (Wellbutrin SR) 150 mg PO BID 60 tabs 1RF
--- OUTSIDE RECORDS SUMMARY | 2025-01-19 13:04 | XMS_ITS | Data Portability ---
Author Organization [place] - [facility], Allergy Address [address] [place] [phone] Care Team Providers Care Forklift Driver Name Role Phone HERSONDOTTIE JONES Referring Provider [phone] Assessment No assessment recorded. Plan of Treatment Reminders Order Date Submit Date Provider Last Modified By Organization Details Last Modified Time Details Appointments None recorded. Lab None recorded. Referral plastic surgeon referral 2024 025 [facility] Lew Carter MD [facility], [address] [place] [address], [place], [address], 5 16:25:21 Procedures None recorded. Surgeries None recorded. Imaging CT, maxillofa cial, w/ contrast 2024 025 [facility], [address] [place], [address], 5 15:39:11 Medication Orders Flonase Allergy Relief 50 mcg/actua tion nasal spray,sunday pension 2024 025 [id number], [address] [place], [address], 5 15:36:50 Patient TargetsNo targets recorded. Patient InstructionsNo instructions recorded. Reason for Referral Plastic Surgeon Referral for Disorder of the nose Referring Physician: Dottie Avila, Otolaryngology, Encounter Date: 11/23/2024 Problems Name Problem SNOMED Code Status Onset Date Resolution Date Notes Provider Name and Address Organization Details Recorded Time Disorder of the nose 80126206 Active 025 DOTTIE Carbajal MD [address] [address], [place], [phone], [facility] - [facility] 15:30:06 Deviated nasal septum 166121976 Active 025 DOTTIE Carbajal MD [address] [address], [place], [phone], [facility] - [facility] 15:30:10 Nasal congestion 32025961 Active 025 DOTTIE Carbajal MD [address] [address], [place], [phone], [facility] - [facility] 15:30:13 Problem Notes None recorded. Procedures Surgical History Date Name Laterality Status Provider Name and Address Organization Details Recorded Time 11/23/2024 NasalEndos copy_DP completed DOTTIE AVILA MD [address] [place] [address], [phone], [facility] 11/23/2024 15:30:28 Imaging Results None recorded. [...] Updated DateTime 11/23/2024 177.8 cm 38.7 kg/m2 915974.94 g Mihir Frey [place] - [facility] 11/23/2024 14:57:16 Social History None recorded. Functional Status None recorded. Mental Status None recorded. Family History Nothing Reported. Medical History No medical history recorded. Past Encounters Encounter ID Performer Location Encounter Start Date Encounter Closed Date Diagnosis/Indication Diagnosis SNOMED-CT Code Diagnosis ICD10 Code Diagnosis Note [id number] DOTTIE AVILA MD [facility] on [address] [place] [phone] 11/23/2024 14:38:20 11/23/2024 15:37:57 Disorder of the nose 23869182 J34.9 He has nasal obstructio n worse [...] polyps and purulence. Deviated nasal septum 12 4976076 J34.2 Septum deviates to the right, but airflow is worse on the right Nasal congestion 1208606 0 R09.81 see above Health Concerns Section Related Observation LastModified by Organization Detai ls LastModified Time None Recorded Concern Status LastModified by Organization Details LastModified Time None Recorded Advance Directives Directive None Recorded Payers Encounter Date Sequence Insurance Name Policy Number Policy Cobb Covered Member ID Cobb Member ID Guarantor Name 11/23/2024 1 [facility]: [facility] [id number] Hebert Heath [id number] Hebert Heath Notes Date Note Type [...] two years or so. DOTTIE AVILA MD [address] [place] [address], [place], [address], [place] - [facility] 11/23/2024 15:36:52
== END 2025-01-19 11:19 | disposition home or self-care (01) ==
LOC: HO.HMCSH 10:47
PROVIDERS: PCP Internal Medicine; Visit Provider Internal Medicine
DX: R21 Rash and other nonspecific skin eruption (principal)

== ENCOUNTER → 2025-01-19 10:47 | Outpatient (BNVA) | payer BC, SELFPAY | PROVIDERS: PCP Internal Medicine; Visit Provider Internal Medicine ==

== ENCOUNTER 2025-01-26 10:48 | Outpatient (AMB) | payer BC, SELFPAY ==
[2025-01-26 10:50] VITALS: BP 120/78; PULSE 60; RESP 16; TEMP 36.7; O2SAT 98; BMI 25.5
--- NOTE | 2025-01-26 10:50 | MHC.PC.OV ---
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 Accompanied by: Self / Same As Patient Allergies No Known Allergies Allergy (Verified 01/26/25 10:50) Tobacco use date assessed: 01/19/25 Dental Screening Dental Screen Date: 01/19/25 [facility] Medical History ADHD (attention deficit hyperactivity disorder) Deviated nasal septum Family History Mother Breast cancer Father Skin cancer Social History Housing: House Alcohol intake: current Alcohol intake frequency: holidays/special occasions only Patient Tobacco Use Status: Never used Tobacco service: No Current occupational status: employed Cognitive needs: No Hearing needs: No Vision needs: No Questionnaire PHQ-9 Over the last 2 weeks, how often have you been bothered by any of the following problems? 1. Little interest or pleasure in doing things: not at all 2. Feeling down, depressed, or hopeless: not at all 3. Trouble falling or staying asleep, or sleeping too much: not at all 4. Feeling tired or having little energy: not at all 5. Poor appetite or overeating: not at all 6. Feeling bad about yourself - or that you are a failure or have let yourself or your family down: not at all 7. Trouble concentrating on things, such as reading the newspaper or watching television: not at all 8. Moving or speaking so slowly that other people could have noticed. Or the opposite - being so fidgety or restless that you have been moving around a lot more than usual: not at all 9. Thoughts that you would be better off or of hurting yourself in some way: not at all Total score: 0 Source: Developed by Drs. Abdifatah Hansen, Lucy Mart, Walter Engel and colleagues, with an educational lucrecia from [employer]. Thrive Questionnaire Date Thrive assessed: 01/19/25 I am a: Patient What is your living situation today?: I have a steady place to live Within the past 12 months, did the food you bought not last and you didn't have the money to get more?: Never true Within the past 12 months, did you worry whether your food would run out before you got money to buy more?: Never true Do you have trouble paying for medicines?: No Do you have trouble getting transportation to medical appointments?: No Do you have trouble paying your heating and electricity bill?: No Do you have trouble taking care of your child, family member or friend?: No Do you have trouble with day-to-day activities such as bathing, preparing meals, shopping, managing finances, etc.?: No Are you currently unemployed and looking for a job?: No Are you interested in more education?: No THRIVE Score: 0 AUDIT C Alcohol Use Questionnaire (AUDIT-C) 1. How often do you have a drink containing alcohol?: Monthly or less 2. How many drinks containing alcohol do you have on a typical day when you are drinking?: 1 or 2 3. How often do you have six or more drinks on one occasion?: Never Total Score: 1 KAYLYN-7 AMB Questionnaire KAYLYN-7 Date KAYLYN - 7 assessed: 01/19/25 Feeling nervous, anxious, or on edge: 0 = Not at all Not being able to stop or control worryin = Not at all Worrying too much about different things: 0 = Not at all Trouble relaxin = Not at all Being so restless that it is hard to sit still: 0 = Not at all Becoming easily annoyed or irritable: 0 = Not at all Feeling afraid as if something awful might happen: 0 = Not at all Total KAYLYN-7 score (0-4 normal; 5-9 mild; 10-14 moderate; 15-21 severe): 0 Source: Developed by Drs. Abdifatah Hansen, Lucy Mart, Walter Engel and colleagues, with an educational lucrecia from [employer]. Physical exam (Primary Care) Vital Signs: Last Vital Signs Temp 98.0 F 01/26/25 10:50 Pulse 60 01/26/25 10:50 Resp 16 01/26/25 10:50 BP 120/78 01/26/25 10:50 Pulse Ox 98 01/26/25 10:50 Oxygen Delivery Method Room Air 01/26/25 10:50 BMI result Body Mass Index 25.5 Tobacco/Smoking Status: Tobacco use Status Tobacco use date assessed 01/19/25 01/26/25 10:57 Patient Tobacco Use Status Never used Tobacco 01/26/25 10:57 PHQ-9: PHQ-9 Score PHQ-9: Total score 0 01/26/25 10:57 Thrive Assessment: Date of Thrive Assessment Date Thrive assessed 01/19/25 01/26/25 10:57 Coding Level of Care Code Est Pt Level 3 (31256) Complex EM visit Add On G2211 Diagnoses ADHD (attention deficit hyperactivity disorder) F90.9 Assessment & Plan Assessment & Plan (1) ADHD (attention deficit hyperactivity disorder): Code(s): F90.9 - Attention-deficit hyperactivity disorder, unspecified type Category: Medical Plan: Continue Welbutrin Plan History of Present Illness The patient is a 49-year-old male presenting with persistent insomnia and symptoms related to ADHD. His difficulty with insomnia has persisted, although there was a noted improvement in sleep quality by adjusting the dosing schedule of Wellbutrin, taking the second dose at noon instead of nighttime. The patient acknowledges ongoing challenges with maintaining focus and productivity at work despite increased energy attributed to the medication's stimulant effects. This history reflects the balance between addressing psychiatric symptoms with medication management and managing potential side effects, such as insomnia. The resolved rash was previously addressed with hydroxyzine, with speculation of toothpaste being a contributing factor. With this intervention, the skin condition has returned to baseline, indicating effective management of dermatological symptoms. Social History - Employment and Work: Reports being more productive due to increased energy levels from medication but is still distracted and unfocused at work. - Medication adherence: Adjusted Wellbutrin timing in response to insomnia. - Possible environmental factor for rash: Suspects toothpaste might have been responsible. Review of Systems - Integumentary: Reports resolution of rash after hydroxyzine. - Neurological: Reports insomnia; specifically, improvement in sleep with Wellbutrin dose adjustment. - Psychiatric: Reports increased energy and mental endurance but ongoing difficulty with focus and productivity. Physical Exam General: Appearance normal, both eyes and all related structures Nutritional Appearance: Well nourished Orientation/consciousness: Patient oriented x3 Limitations: No limitations Head: Normal to inspection Neck: Normal visual inspection Chest: Normal palpation of entire chest wall Respiratory: Normal respiratory effort Neurology: Patient oriented x3, noted to have more energy and mental endurance throughout the day, but still experiencing insomnia and some distraction with work. Results Plan To manage insomnia, I advised adjusting the Wellbutrin schedule, noting improved sleep with the noon dosage. The stimulant effect of Wellbutrin helps with focus, but its side effects may require careful timing adjustments, which I will monitor. The resolved rash, initially treated with hydroxyzine, suggests toothpaste as a potential cause, but no further dermatologic action is needed. The patient will continue to track mental health symptoms for further review, as improvements may develop over time. Patient was informed and verbally consented to the use of an ambient scribe for clinic note documentation during this visit. Discussion Notes During this visit, I discussed the patient's insomnia and his current treatment with Wellbutrin, emphasizing the importance of optimal dosing schedules, which might help alleviate sleep disturbances and enhance focus and productivity. The patient was informed of the time it could take before seeing significant mental health improvements. We also reviewed the resolved rash, with hydroxyzine effectively managing the symptoms. I encouraged the patient to document sleep patterns and any fluctuations in energy or focus, and we will evaluate this data in future consultations to determine the effectiveness of current treatment. Patient Instructions - Continue taking Wellbutrin at 7:00 AM and noon. - Monitor and document sleep patterns and levels of focus and productivity. - Be conscious of any potential environmental triggers for rashes, such as toothpaste. - Follow prescribed medication regimens and maintain appointment schedules for ongoing assessments. - Report any new or worsening symptoms promptly.
== END 2025-01-26 11:41 | disposition home or self-care (01) ==
LOC: HO.HMCSH 10:48
PROVIDERS: PCP Internal Medicine; Visit Provider Internal Medicine
DX: F90.9 Attention-deficit hyperactivity disorder, unspecified type (principal)

== ENCOUNTER 2025-06-15 08:06 | Outpatient (REF) | payer BC, SELFPAY ==
--- OUTSIDE RECORDS SUMMARY | 2025-06-15 08:08 | XMS_ITS | Clinical Summary ---
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 Not on melanie e 03/08/2023 Are you concerned about learning? Not on file 03/08/2023 No 03/08/2023 No 03/08/2023 Digital Access Answer Date Recorded No 04/05/2023 No 04/05/2023 No 04/05/2023 Reliable internet access at home? Not on file 04/05/2023 Device with a working camera? Not on file Sex and Gender Information Value Date Recorded Sex Assigned at Male 10/07/2019 2:56 AM EST Legal Sex Male 9:29 PM EDT Gender Identity Male 10/07/2019 2:56 AM EST Sexual Orientation Straight 10/07/2019 2: 56 AM EST Last Filed Vital Signs Vital Sign Reading Time Taken Comments Blood Pressure 122/70 08/08/2021 3:40 PM EDT Pulse 72 08/08/2021 3:40 PM EDT Temperature 36.6 C (97.8 F) 08/08/2021 3:40 PM EDT Respiratory Rate 16 08/08/2021 3:40 PM EDT Oxygen Saturation 97% 08/08/2021 3:40 PM EDT Inhaled Oxygen Concentration - - Weight 68 kg (150 lb) 08/08/2021 3:40 PM EDT Height 177.8 cm (5' 10 ) 08/08/2021 3:40 PM EDT Body Mass Index 21.52 08/08/2021 3:40 PM EDT Plan of Treatment Health Maintenance Due Date Last Done Comments DEPRESSION SCREENING 1987 HEPATITIS C SCREENING 1993 HIV ONE-TIME SCREENING (18-6 5 YEARS) 1993 COLOGUARD 2020 COLONOSCOPY 2020 COLORECTAL CANCER SCREENING 2020 FIT TEST 2020 FOBT 2020 SIGMOIDOSCOPY 2020 VIRTUAL COLONOSCOPY 2020 COVID-19 VACCINE (3 - 2023-2 5 season) 2024 04/12/2021, 03/18/2021 PNEUMOCOCCAL VACCINES (50+ years) (1 of 1 - PCV) 2025 ZOSTER VACCINES (1 of 2) 2025 LIPID PANEL 06/03/2028 06/03/2023 Adult Td,Tdap Booster 07/27/2031 07/27/2021 SMOKING STATUS SCREENING (On ce After 26 Yrs) Completed 08/08/2021 HEPATITIS A VACCINES Aged Out No long er eligible based on patient's age to complete this topic HIB VACCINES Aged Out No longer eligi ble based on patient's age to complete this topic MENINGOCOCCAL VACCINES (ACWY) Aged Out No longer eligible based on patient's age to complete this topic MENINGOCOCCAL VACCINES (B) Aged Out N o longer eligible based on patient's age to complete this topic Medical Devices Not on file Procedures Procedure Name Priority Date/Time Associated Diagnosis Comments LIPID PANEL Routine 06/03/2023 10:14 AM EDT Hypercholesterolemia from Last 3 Months or Most Recently Relevant to Health Maintenance Results * (ABNORMAL) Lipid panel (06/03/2023 10:14 AM EDT) HDL 81 mg/dL [facility] Comment: Interpretation <40 mg/dL: Low HDL cholesterol (major risk factor for CHD) Greater than or equal to 60 mg/dL: High HDL cholesterol ( negative risk factor for CHD) HDL - cholesterol is affected by a number of factors, e.g. smoking, excerise, hormones, sex and age. CHOLESTEROL 225 0 - 240 mg/dL [facility] TRIGLYCERIDES 88 30 - 160 mg/dL [facility] LDL 126 50 - 129 mg/dL [facility] Comment: LDL levels in terms of risk for coronary heart disease: <100 mg/dL: Optimal 100-129 mg/dL: Near or above optimal 130-159 mg/dL: Borderline high 160-189 mg/dL: High >190 mg/dL: Very High CARDIAC RISK RATIO 2.8(L) 3.4 - 5.0 C [facility] Blood 06/03/2023 10:1 4 AM EDT 06/03/2023 10:16 AM EDT us Abdifatah Samano DO LAB BLOOD ORDERABLES Final R esult [address] [id number] from Last 3 Months or Most Recently Relevant to Health Maintenance Insurance [address] [place], [place] [id number] [facility] [place] [address] [place] [address] HMO POS [facility] POS [facility] HMO [facility] Care Teams Cooling Tower Technician Relationship Specialty Start Date End Date Abdifatah Samano DO [address] [place] [id number] PCP - General 08/26/17 Additional Source Comments The information contained in this document represents components of the legal health record. It is not the complete legal health record.[facility]
[2025-06-15 10:14] LABS: Hematocrit 39.9 % (42.0-52.0); Hemoglobin 13.4 g/dl (14.0-18.0); Mean Corpuscular HGB Conc 33.6 g/dl (31.0-36.0); Mean Corpuscular Hemoglobin 29.4 pg (27.0-33.0); Mean Corpuscular Volume 87.5 fL (80.0-98.0); NRBC Abs Auto 0.000 X10*3/uL (0.0-0.012); NRBC Pct Auto 0.0 /100WBC (0.0-0.2); Platelet Count 262 X10*3/uL (160-400); Red Blood Count 4.56 X10*6/uL (4.60-5.80); White Blood Count 6.9 X10*3/uL (4.8-10.8)
[2025-06-15 11:02] LABS: Alanine Aminotransferase 20 U/L (0-40); Albumin Level 4.3 g/dL (3.5-5.0); Alkaline Phosphatase 53 U/L (39-117); Anion Gap 9 (12-20); Aspartate Amino Transferase 24 U/L (5-37); Blood Urea Nitrogen 17 mg/dL (9-16); Calcium 8.8 mg/dL (8.4-10.2); Carbon Dioxide 30 mmol/L (22-29); Chloride 106 mmol/L (96-108); Cholesterol 204 mg/dL (<200); Estimated Glomerular Filt Rate 58; HDL Cholesterol 65 mg/dL (>40); Potassium 4.0 mmol/L (3.3-5.1); Sodium 141 mmol/L (135-145); Total Protein 6.5 g/dL (6.5-8.0); Triglycerides 59 mg/dL (<150)
[2025-06-15 11:06] LABS: Thyroid Stimulating Hormone 1.74 uIU/mL (0.32-4.0)
== END 2025-06-15 08:07 | disposition home or self-care (01) ==
LOC: HO.HMGCLDS 08:06
PROVIDERS: PCP Internal Medicine; Visit Provider Internal Medicine
DX: E78.5 Hyperlipidemia, unspecified (principal); G47.9 Sleep disorder, unspecified; F98.8 Other specified behavioral and emotional disorders with onset usually occurring in childhood and adolescence; J34.2 Deviated nasal septum; H53.2 Diplopia; Z82.49 Family history of ischemic heart disease and other diseases of the circulatory system; Z13.30 Encounter for screening examination for mental health and behavioral disorders, unspecified; M79.671 Pain in right foot
CPT/HCPCS: 36415; 80048; 80061; 80076; 84443; 85027; 96127

== ENCOUNTER 2025-06-15 13:46 | Outpatient (AMB) | payer BC, SELFPAY ==
[2025-06-15 13:59] VITALS: BP 116/65; PULSE 70; RESP 14; TEMP 36.6; O2SAT 98; BMI 25.8
--- NOTE | 2025-06-15 13:59 | MHC.PC.OV ---
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 by: Self / Same As Patient Allergies No Known Allergies Allergy (Verified 06/15/25 14:00) Tobacco use date assessed: 06/15/25 Dental Screening Dental Screen Date: 01/19/25 [facility] Medical History ADHD (attention deficit hyperactivity disorder) Deviated nasal septum Surgical History History of colonoscopy (~10/25/21) Family History Mother Breast cancer Father Skin cancer Social History Housing: House Alcohol intake: current Alcohol intake frequency: holidays/special occasions only Patient Tobacco Use Status: Never used Tobacco service: No Current occupational status: employed Cognitive needs: No Hearing needs: No Vision needs: No Questionnaire PHQ-9 Over the last 2 weeks, how often have you been bothered by any of the following problems? 1. Little interest or pleasure in doing things: not at all 2. Feeling down, depressed, or hopeless: not at all 3. Trouble falling or staying asleep, or sleeping too much: not at all 4. Feeling tired or having little energy: not at all 5. Poor appetite or overeating: not at all 6. Feeling bad about yourself - or that you are a failure or have let yourself or your family down: not at all 7. Trouble concentrating on things, such as reading the newspaper or watching television: not at all 8. Moving or speaking so slowly that other people could have noticed. Or the opposite - being so fidgety or restless that you have been moving around a lot more than usual: not at all 9. Thoughts that you would be better off or of hurting yourself in some way: not at all Total score: 0 Source: Developed by Drs. Abdifatah Hansen, Walter Rowe and colleagues, with an educational lucrecia from [employer]. Thrive Questionnaire Date Thrive assessed: 01/26/25 I am a: Patient What is your living situation today?: I have a steady place to live Within the past 12 months, did the food you bought not last and you didn't have the money to get more?: Never true Within the past 12 months, did you worry whether your food would run out before you got money to buy more?: Never true Do you have trouble paying for medicines?: No Do you have trouble getting transportation to medical appointments?: No Do you have trouble paying your heating and electricity bill?: No Do you have trouble taking care of your child, family member or friend?: No Do you have trouble with day-to-day activities such as bathing, preparing meals, shopping, managing finances, etc.?: No Are you currently unemployed and looking for a job?: No Are you interested in more education?: No THRIVE Score: 0 AUDIT C Alcohol Use Questionnaire (AUDIT-C) 1. How often do you have a drink containing alcohol?: Never 3. How often do you have six or more drinks on one occasion?: Never Total Score: 0 KAYLYN-7 AMB Questionnaire AKYLYN-7 Date KAYLYN - 7 assessed: 01/26/25 Feeling nervous, anxious, or on edge: 0 = Not at all Not being able to stop or control worryin = Not at all Worrying too much about different things: 0 = Not at all Trouble relaxin = Not at all Being so restless that it is hard to sit still: 0 = Not at all Becoming easily annoyed or irritable: 0 = Not at all Feeling afraid as if something awful might happen: 0 = Not at all Total KAYLYN-7 score (0-4 normal; 5-9 mild; 10-14 moderate; 15-21 severe): 0 Source: Developed by Drs. Abdifatah Hansen, Walter Rowe and colleagues, with an educational lucrecia from [employer]. Physical exam (Primary Care) Vital Signs: Last Vital Signs Temp 97.8 F 06/15/25 13:59 Pulse 70 06/15/25 13:59 Resp 14 06/15/25 13:59 BP 116/65 06/15/25 13:59 Pulse Ox 98 06/15/25 13:59 Oxygen Delivery Method Room Air 06/15/25 13:59 BMI result Body Mass Index 25.8 Tobacco/Smoking Status: Tobacco use Status Tobacco use date assessed 06/15/25 06/15/25 14:07 Patient Tobacco Use Status Never used Tobacco 06/15/25 14:07 PHQ-9: PHQ-9 Score PHQ-9: Total score 0 06/15/25 14:07 Thrive Assessment: Date of Thrive Assessment Date Thrive assessed 01/26/25 06/15/25 14:07 Coding Level of Care Code Est Pt Level 4 (10337) Complex EM visit Add On G2211 Diagnoses Cerebral aneurysm I67.1 Assessment & Plan Assessment & Plan (1) Cerebral aneurysm: Code(s): I67.1 - Cerebral aneurysm, nonruptured Plan: Family history of cerebral aneurysm. Grand Mother of SAH. Mother has a cerebral aneurysm. CTA ordered Plan History of Present Illness - The patient is a 50-year-old male presenting with hyperlipidemia and sleep disturbances. - Hyperlipidemia: LDL cholesterol is elevated at 128 mg/dL, with a slight upward trend. The patient prefers dietary management over medication. - Sleep disturbances: Bupropion aids in mental clarity and functioning during episodes. - Attention Deficit Disorder (ADD): No specialist follow-up has occurred. - Diplopia: An head pastry chef found no abnormalities following a double vision episode. - Family history of cerebral aneurysm: Imaging is considered but not recommended without further risk factors. - Deviated nasal septum: Awaiting a CT scan for sinus issues. Social History - Employment: The patient reports a very busy and stressful work environment. Review of Systems - Cardiovascular: Denies chest pain, orthopnea, or syncope. - Neurological: Reports sleep disturbances and diplopia. Denies headaches, dizziness, or balance issues. Physical Exam General: Cooperative and healthy appearing Nutritional Appearance: Well nourished Orientation/consciousness: Patient oriented x3 Limitations: No limitations Head: Normal to inspection General: Appearance normal, both eyes and all related structures Neck: Normal visual inspection Chest: Normal palpation of entire chest wall Respiratory: N ormal respiratory effort Neurology: Patient oriented x3, reports a recent episode of double vision; head pastry chef did not find any issues. Results - Labs: LDL cholesterol level is 128 mg/dL. Plan 1. Hyperlipidemia - Manage hyperlipidemia through dietary changes and reassess in six months. 2. Sleep Disturbances - Continue bupropion for mental clarity and functioning during sleep disturbances. 3. Attention Deficit Disorder (Add) - Follow up with a specialist for ADD evaluation and management. 4. Diplopia - No further action required as head pastry chef found no abnormalities. 5. Family History Of Cerebral Aneurysm - Consider imaging only if additional risk factors develop. 6. Deviated Nasal Septum - Follow up with CT scan for sinus issues. Discussion Notes We discussed the management of hyperlipidemia through dietary changes and the option to reassess in six months. The patient prefers not to start statins at this time. We also talked about continuing bupropion for sleep disturbances and mental clarity. I advised the patient to follow up with a specialist for ADD evaluation. Regarding the family history of cerebral aneurysm, imaging is not recommended without additional risk factors. The patient will follow up with a CT scan for sinus issues related to a deviated nasal septum. Patient Instructions - Continue dietary changes to manage cholesterol and return for reassessment in six months. - Keep taking bupropion as prescribed for sleep disturbances. - Schedule an appointment with a specialist for ADD evaluation. - Follow up with a CT scan for sinus issues related to the deviated nasal septum. Orders: Orders CT angio head Today I67.1 - Cerebral aneurysm, nonruptured Medications: New bupropion HCl XL (Wellbutrin XL) 300 mg PO QAM 90 tabs 1RF Discontinued bupropion HCl SR (Wellbutrin SR) Discontinued Reason: Patient Refused 150 mg PO BID 180 tabs 1RF
== END 2025-06-15 14:23 | disposition home or self-care (01) ==
LOC: HO.HMCSH 13:46
PROVIDERS: PCP Internal Medicine; Visit Provider Internal Medicine
DX: I67.1 Cerebral aneurysm, nonruptured (principal)